=== PATIENT | male | born 1940 | race American Indian/Alaskan Native ===

== ENCOUNTER 2019-05-25 12:13 | Observation (INO) | payer BC, MEDICARE ==
--- NOTE | 2019-05-25 13:18 | Anesthesia Day of Surgery ---
Anesthesia Day of Surgery - Day of Surgery Patient Examined: Yes Patient H&P Reviewed: Yes Patient is NPO: Yes
--- NOTE | 2019-05-25 13:18 | Anesthesia Consultation ---
Anesthesia Consult and Med Hx Date of service: 05/25/19 - Airway Anesthetic Teeth Evaluation: Dentures ROM Head & Neck: Adequate Mental/Hyoid Distance: Adequate Mallampati Class: Class II Intubation Access Assessment: Good - Pulmonary Exam CTA: Yes - Cardiac Exam Cardiac Exam: RRR - Pre-Operative Health Status ASA Pre-Surgery Classification: ASA2 Proposed Anesthetic Plan: General - Pulmonary Hx Smoking: Yes (STOPPED 1991) Hx Respiratory Symptoms: Yes (productive cough x5 days) Hx Sleep Apnea: Yes (DX SLEEP APNEA WITH CPAP) - Cardiovascular System Hx Hypertension: No Hx Heart Attack/AMI: No - Central Nervous System Hx Seizures: No CVA: No Hx Psychiatric Problems: No - Gastrointestinal Hx Gastroesophageal Reflux Disease: No - Endocrine Hx Renal Disease: No Hx Liver Disease: No Hx Insulin Dependent Diabetes: No Hx Non-Insulin Dependent Diabetes: No Hx Thyroid Disease: No - Hematic Hx Anemia: No - Other Systems Hx Alcohol Use: Yes (OCC. WINE) Hx Substance Use: No Hx Cancer: No Hx Obesity: Yes (BMI 38)
[2019-05-25] MEDS ORDERED: HYDROmorphone 1 MG/1 ML INJ IV PRN (13:19)
[2019-05-25] MEDS ORDERED: ONDANSETRON 4 MG/2 ML INJ IV PRN ×2 (13:19→15:09)
--- NOTE | 2019-05-25 13:26 | Post Operative Note ---
Date of procedure: 05/25/19 Pre-op diagnosis: hematuria Post-op diagnosis: same Findings: huge bleeding gland Procedure: cysto rpgs bx turp Anesthesia: GETA Surgeon: JONATHAN DE OLIVEIRA Estimated blood loss: minimal Pathology: list (bladder prostate) Specimen disposition: to lab Condition: stable Disposition: PACU
--- NOTE | 2019-05-25 13:50 | Discharge Summary ---
Short Stay Discharge Plan Activity: other (no strainin g ) Diet: low fat, low cholesterol, low salt Special Instructions: other (inc fluids ) Durable Medical Equipment Needed Upon Discharge: other (cathter care ) Follow up with: YESI TOMPKINS MD [Primary Care Provider] - 7 Days JONATHAN DE OLIVEIRA MD [Staff Physician] - 7 Days
[2019-05-25] MEDS ORDERED: LIDOCAINE MPF (2%) 20 MG/1 ML VIAL 5 ML ONE (13:53)
[2019-05-25] MEDS ORDERED: PROPOFOL 200 MG/20 ML VIAL IV ONE (13:53)
[2019-05-25] MEDS ORDERED: fentaNYL 100 MCG/2 ML INJ ONE (13:53)
[2019-05-25] MEDS ORDERED: MIDAZOLAM 2 MG/2 ML INJ IV NR (14:00)
[2019-05-25] MEDS ORDERED: LACTATED RINGERS 1,000 ML IV SCH (15:00)
[2019-05-25] MEDS ORDERED: ACETAMINOPHEN 325 MG TAB PO PRN (15:09)
[2019-05-25] MEDS ORDERED: ZOLPIDEM 5 MG TAB PO PRN (15:09)
[2019-05-25] MEDS ORDERED: NALOXONE 0.4 MG/1 ML INJ IV PRN (15:09)
[2019-05-25] MEDS ORDERED: oxyCODONE /ACETAMINOPHEN 5-325MG TAB PO PRN (15:09)
[2019-05-25] MEDS ORDERED: D5W/0.45% NACL/KCL 20 MEQ 20 MEQ/1,000 ML BAG IV SCH (16:00)
--- NOTE | 2019-05-25 16:00 | Post Anesthesia Evaluation ---
- Post Anesthesia Evaluation Patient Participated: Yes Airway Patent: Yes Stable Respiratory Function: Yes Nausea/Vomiting: No Temp > 96.8F: Yes Pain Manageable: Yes Adequeate Hydration: Yes Anesthesia Complications: No Block Receding Appropriately: Not Applicable Patient on Ventilator: No
--- NOTE | 2019-05-25 16:15 | Fluoroscopy Report ---
5 fluoroscopic images submitted Indication: Intraoperative localization Impression: 5 images of the abdomen were submitted for documentation purposes with radiology involve ment. Right-sided retrograde pyelogram was performed, as well as a cystogram with bladder biopsy. A total of 30 mL of Omnipaque 300 was used for this exam. Please refer to the operative note for comple te details. Fluoroscopic time: 19 seconds Signer Name: Gaston White MD Signed: 05/25/2019 4:11 PM Workstation Name: [id number]
--- NOTE | 2019-05-25 17:24 | Operative Report ---
PREOPERATIVE DIAGNOSES: Gross hematuria, huge prostate. POSTOPERATIVE DIAGNOSIS: Bleeding from the middle lobe of the prostate. PROCEDURE: Cystoscopy, right retrograde small bladder biopsy, transurethral fulguration and resection of middle lobe. SURGEON: Dr. Hammond. ANESTHESIA: General. FINDINGS: This is a gentleman who had bleeding all weekend, gross hematuria, occasional clots. He now presents for cystoscopy. FISH test was negative. DESCRIPTION OF PROCEDURE: The patient was brought to the operating room and placed on the operating table. Following induction of anesthesia, placed in lithotomy position, prepped and draped in usual sterile fashion. Cystourethroscopy showed very large prostate with trilobar hypertrophy, mostly this middle lobe covering the left orifice. Everytime we looked, there was just oozing from large varices. Right retrograde showed a very large elevated prostate with J hooking. There was good drainage. There was 2+ trabeculation. There were no bladder tumors. Small bladder biopsy was taken. The prostate continued to ooze, so a resectoscope was placed and that area was trimmed minimally to allow hemostasis. The patient tolerated the procedure well. We did not resect anywhere near the trigone. Hemostasis was assured with the Ball electrode. Minimal blood loss. Brought to recovery in stable condition. JOB# [id number] SHAI/EMIL
[2019-05-25] MEDS ORDERED: TAMSULOSIN 0.4 MG CAP PO SCH (18:00)
[2019-05-25] MEDS ORDERED: GENTAMICIN/NS 80 MG/100 ML 100 ML IV SCH (18:00)
[2019-05-25] MEDS: GENTAMICIN/NS 80 MG/100 ML 100 ML IV SCH (22:13)
[2019-05-26] MEDS: SODIUM CHLORIDE 0.9% IRRIG SOLN 2000 ML IR SCH ×3 (03:05→05:56)
[2019-05-26] MEDS: GENTAMICIN/NS 80 MG/100 ML 100 ML IV SCH (05:55)
--- NOTE | 2019-05-26 07:17 | Consultation ---
History of Present Illness - Reason for Consult Consult date: 05/26/19 Medical management Requesting physician: JONATHAN DE OLIVEIRA - History of Present Illness S/p cysto +rpgs bx +turp.patent had Hematuria.Post op doing well. Past History Past Medical History: other (OAB,All rhinitis,Vit D def) Past Surgical History: TURP Social history: lives with family, full code Family history: hypertension Medications and Allergies Allergies Allergy/AdvReac Type Severity Reaction Status Date / Time aspirin Allergy INCREASED Verified 02/25/19 12:48 HEART RATE ciprofloxacin Allergy Hives Verified 02/25/19 12:48 Penicillins Allergy Vomiting Verified 02/25/19 12:48 Home Medications Medication Instructions Recorded Confirmed Last Taken Type Ascorbic Acid [Vitamin C with Angie 1,000 mg PO DAILY 02/25/19 05/25/19 05/24/19 08:00 History Hips] Cholecalciferol (Vitamin D3) 50,000 unit PO QWEEK 02/25/19 05/25/19 05/24/19 08:00 History [Vitamin D3 50,000UNIT CAP] Multivit-Min/FA/Lycopen/Lutein 1 each PO DAILY 02/25/19 05/25/19 05/24/19 08:00 History [Centrum Silver Tablet] Solifenacin Succinate [Vesicare] 5 mg PO DAILY 02/25/19 05/25/19 05/24/19 08:00 History Cetirizine HCl 10 mg PO DAILY 05/18/19 05/25/19 05/24/19 08:00 History oxyCODONE /ACETAMINOPHEN [Percocet 1 tab PO Q6HR PRN 05/19/19 05/25/19 04/08/19 08:00 History 5/325] Sulfamethoxazole/Trimethoprim 1 tab PO BID 05/25/19 05/25/19 05/24/19 17:30 History [Sulfamethoxazole-Tmp Ds Tablet] Active Meds: Active Medications Acetaminophen (Tylenol) 650 mg PO Q4H PRN PRN Reason: Pain, Mild (1-3)/Fever > 100.5 Lactated Ringer's (Lactated Ringers) 1,000 mls @ 100 mls/hr IV DIRECT CITLALI Last Infusion: 05/26/19 03:18 Dose: Infused Documented by: Gentamicin Sulfate/Sodium Chloride (Gentamicin/Ns 80 Mg/100 Ml) 100 mls @ 200 mls/hr IV PREOP CITLALI Last Admin: 05/26/19 05:55 Dose: 200 mls/hr Documented by: Potassium Chloride/Dextrose/Sod Cl (D5w/0.45% Nacl/Kcl 20 Meq) 20 meq in 1,000 mls @ 100 mls/hr IV DIRECT CITLALI Gentamicin Sulfate/Sodium Chloride (Gentamicin/Ns 80 Mg/100 Ml) 100 mls @ 200 mls/hr IV Q12H CITLALI; Protocol Stop: 05/26/19 18:29 Last Admin: 05/26/19 03:14 Dose: Not Given Documented by: Naloxone HCl (Naloxone) 0.1 mg IV Q2MIN PRN PRN Reason: Res Rate </= 8 or 02 SAT < 92% Ondansetron HCl (Zofran) 4 mg IV ONCE PRN PRN Reason: Nausea And Vomiting Ondansetron HCl (Zofran) 4 mg IV Q8H PRN PRN Reason: Nausea And Vomiting Oxycodone/Acetaminophen (Percocet 5/325) 2 tab PO Q6H PRN PRN Reason: Pain, Moderate (4-6) Sodium Chloride (Nacl 0.9%) 2,000 ml IR DIRECT CITLALI Last Admin: 05/26/19 05:56 Dose: 2,000 ml Documented by: Tamsulosin HCl (Flomax) 0.4 mg PO QPM CITLALI Last Admin: 05/25/19 22:14 Dose: 0.4 mg Documented by: Zolpidem Tartrate (Ambien) 5 mg PO QHS PRN PRN Reason: Sleep Review of Systems All systems: negative Exam - Constitutional Vitals: Temp Pulse Resp BP Pulse Ox 98.3 F 69 17 127/66 97 05/26/19 04:12 05/26/19 04:12 05/26/19 04:12 05/26/19 04:12 05/26/19 04:12 General appearance: Present: no acute distress, well-nourished - EENT Eyes: Present: PERRL ENT: hearing intact, clear oral mucosa - Neck Neck: Present: supple, normal ROM - Respiratory Respiratory effort: normal Respiratory: bilateral: CTA - Cardiovascular Heart rate: 78 Rhythm: regular Heart Sounds: Present: S1 & S2. Absent: rub, click - Extremities Extremities: pulses symmetrical, No edema Peripheral Pulses: within normal limits - Abdominal General gastrointestinal: Present: soft, non-tender, non-distended, normal bowel sounds Male genitourinary: Present: normal - Rectal Rectal Exam: deferred - Integumentary Integumentary: Present: clear, warm, dry - Musculoskeletal Musculoskeletal: gait normal, strength equal bilaterally - Psychiatric Psychiatric: appropriate mood/affect, intact judgment & insight - Neurologic Neurologic: CNII-XII intact, moves all extremities - Allied Health Allied health notes reviewed: nursing Assessment and Plan - Patient Problems (1) S/P TURP Current Visit: Yes Status: Acute Plan to address problem: Post op doing well Pain control (2) Vitamin D deficiency Current Visit: Yes Status: Chronic Plan to address problem: Cont Vit D (3) OAB (overactive bladder) Current Visit: Yes Status: Chronic Plan to address problem: Cont Vesicare (4) DVT prophylaxis Current Visit: Yes Status: Acute Plan to address problem: On SCD's and GI prophylaxis
[2019-05-26 07:50] VITALS: BP 125/69
--- NOTE | 2019-05-26 09:47 | Progress Note ---
Assessment and Plan HOME TODAY WITH CATH Subjective Date of service: 05/26/19 Principal diagnosis: BPH HEME Objective - Constitutional Vitals: Vital Signs - 12hr 05/25/19 05/26/19 05/26/19 23:32 04:12 07:00 Temperature 97.9 F 98.3 F 97 F L Pulse Rate 72 69 69 Respiratory 17 17 20 Rate Blood Pressure 130/68 127/66 Blood Pressure 125/69 [Left] O2 Sat by Pulse 96 97 94 Oximetry 05/26/19 07:32 Temperature 97.0 F L Pulse Rate 69 Respiratory 20 Rate Blood Pressure 125/69 Blood Pressure [Left] O2 Sat by Pulse 93 Oximetry General appearance: Present: no acute distress - Neck Neck: supple - Respiratory Respiratory effort: normal Extremities: no ischemia - Gastrointestinal General gastrointestinal: Present: soft, non-tender Medications & Allergies - Medications Allergies/Adverse Reactions: Allergies aspirin Allergy (Verified 02/25/19 12:48) INCREASED HEART RATE ciprofloxacin Allergy (Verified 02/25/19 12:48) Hives Penicillins Allergy (Verified 02/25/19 12:48) Vomiting Home Medications: Home Medications Medication Instructions Recorded Confirmed Last Taken Type Ascorbic Acid [Vitamin C with Angie 1,000 mg PO DAILY 02/25/19 05/25/19 05/24/19 08:00 History Hips] Cholecalciferol (Vitamin D3) 50,000 unit PO QWEEK 02/25/19 05/25/19 05/24/19 08:00 History [Vitamin D3 50,000UNIT CAP] Multivit-Min/FA/Lycopen/Lutein 1 each PO DAILY 02/25/19 05/25/19 05/24/19 08:00 History [Centrum Silver Tablet] Solifenacin Succinate [Vesicare] 5 mg PO DAILY 02/25/19 05/25/19 05/24/19 08:00 History Cetirizine HCl 10 mg PO DAILY 05/18/19 05/25/19 05/24/19 08:00 History oxyCODONE /ACETAMINOPHEN [Percocet 1 tab PO Q6HR PRN 05/19/19 05/25/19 04/08/19 08:00 History 5/325] Sulfamethoxazole/Trimethoprim 1 tab PO BID 05/25/19 05/25/19 05/24/19 17:30 History [Sulfamethoxazole-Tmp Ds Tablet] Active Medications: Generic Name Dose Route Start Last Admin Trade Name Freq PRN Reason Stop Dose Admin Acetaminophen 650 mg 05/25/19 15:09 Tylenol PO Q4H PRN Pain, Mild (1-3)/Fever > 100.5 Ascorbic Acid 1,000 mg 05/26/19 10:00 05/26/19 09:21 Vitamin C PO 1,000 mg DAILY CITLALI Administration Cetirizine HCl 10 mg 05/26/19 10:00 05/26/19 09:21 Cetirizine PO 10 mg DAILY CITLALI Administration Lactated Ringer's 1,000 mls @ 100 mls/hr 05/25/19 15:00 05/26/19 03:18 Lactated Ringers IV Infused DIRECT CITLALI Infusion Gentamicin Sulfate/Sodium Chloride 100 mls @ 200 mls/hr 05/25/19 15:10 05/26/19 05:55 Gentamicin/Ns 80 Mg/100 Ml IV 200 mls/hr PREOP CITLALI Administration Potassium Chloride/Dextrose/Sod Cl 20 meq in 1,000 mls @ 100 mls/hr 05/25/19 1 6:00 D5w/0.45% Nacl/Kcl 20 Meq IV DIRECT CITLALI Gentamicin Sulfate/Sodium Chloride 100 mls @ 200 mls/hr 05/25/19 18:00 05/26/19 03:14 Gentamicin/Ns 80 Mg/100 Ml IV 05/26/19 18:29 Not Given Q12H CITLALI Protocol Naloxone HCl 0.1 mg 05/25/19 15:09 Naloxone IV Q2MIN PRN Res Rate </= 8 or 02 SAT < 92% Ondansetron HCl 4 mg 05/25/19 13:19 Zofran IV ONCE PRN Nausea And Vomiting Ondansetron HCl 4 mg 05/25/19 15:09 Zofran IV Q8H PRN Nausea And Vomiting Oxycodone/Acetaminophen 2 tab 05/25/19 15:09 Percocet 5/325 PO Q6H PRN Pain, Moderate (4-6) Sodium Chloride 2,000 ml 05/25/19 16:00 05/26/19 05:56 Nacl 0.9% IR 2,000 ml DIRECT CITLALI Administration Tamsulosin HCl 0.4 mg 05/25/19 18:00 05/25/19 22:14 Flomax PO 0.4 mg QPM CITLALI Administration Zolpidem Tartrate 5 mg 05/25/19 15:09 Ambien PO QHS PRN Sleep
--- NOTE | 2019-05-26 09:49 | Discharge Summary ---
Short Stay Discharge Plan Activity: other (NO STRAINING ) Weight Bearing Status: Full Weight Bearing Diet: low fat, low cholesterol, low salt Special Instructions: other (INC FLUIDS ) Durable Medical Equipment Needed Upon Discharge: other ([facility] ) Follow up with: JONATHAN DE OLIVEIRA MD [Staff Physician] - 7 Days YESI TOMPKINS MD [Primary Care Provider] - 7 Days
[2019-05-26] MEDS ORDERED: ASCORBIC ACID 500 MG TAB PO SCH (10:00)
[2019-05-26] MEDS ORDERED: NON-FORMULARY EACH (Cetirizine Hcl 10 MG) PO SCH (10:00)
[2019-05-26] MEDS ORDERED: CETIRIZINE 10 MG TAB PO SCH (10:00)
[2019-05-26] MEDS ORDERED: ASCORBIC ACID 1000 MG PO SCH (10:00)
== END 2019-05-26 12:06 | disposition home or self-care (01) ==
LOC: OR 12:13 → 3A 15:09 → 3B-SURG 16:34
PROVIDERS: ADMIT Urology; ATTEND Urology
DX: R31.9 Hematuria, unspecified (principal); N40.0 Benign prostatic hyperplasia without lower urinary tract symptoms
CPT/HCPCS: 52204; 74420; 74430; 88305; 88342; 96365; 96366; A4217; C1758; G0378; J1580; J2704; J3010; J7120; Q9967; 88341